=== PATIENT | male | born 1955 | race African-American/Black ===

== ENCOUNTER 2023-04-28 12:53 | Emergency (ER) | payer OTHER, MEDICAID ==
[~2023-04-28] VITALS: Ht 170.2 cm; Wt 41.3 kg
[~2023-04-28 12:53] MED LIST: INSULIN; METF-414 MT
[2023-04-28 13:05] VITALS: BP 138/87; PULSE 100; RESP 16; TEMP 98.5; O2SAT 100
== END 2023-04-28 15:42 | disposition left against medical advice (07) ==
LOC: ER 15:23
DX: Z53.21 Procedure and treatment not carried out due to patient leaving prior to being seen by health care provider (principal)
CPT/HCPCS: 82962; 99281

== ENCOUNTER 2023-05-19 09:14 | Emergency (ER) | payer OTHER, MEDICAID ==
[~2023-05-19] VITALS: Ht 171.4 cm; Wt 50.0 kg
[2023-05-19 09:23] VITALS: BP 97/68; RESP 15; TEMP 98.9; O2SAT 100
[2023-05-19 09:33] VITALS: PULSE 103
[2023-05-19 10:12] LABS: BASOPHILS % 0.5 % (0.0-2.0); EOSINOPHILS % 4.5 % (0.0-5.0); HEMATOCRIT. 36.8 % (42.0-52.0); HEMOGLOBIN. 11.7 g/dL (14.0-18.0); LYMPHOCYTES % 12.6 % (20.0-50.0); MEAN CORPUSCULAR HGB CONC 31.8 g/dL (31.0-37.0); MEAN CORPUSCULAR VOLUME 91.2 fL (80.0-94.0); MEAN PLATELET VOLUME 8.3 fl (7.4-10.4); MONOCYTES % 9.1 % (2.0-8.0); NEUTROPHILS % 73.3 % (40.0-76.0); PLATELET 264 x1000/uL (130-400); RED BLOOD CELL COUNT 4.04 mill/uL (4.7-6.1); RED CELL DISTRIBUTION WIDTH 14.2 % (11.6-14.6); WHITE BLOOD COUNT 5.1 x1000/uL (4.5-11.0)
[2023-05-19 11:03] LABS: ALANINE AMINOTRANSFERASE 36 IU/L (10-49); ALBUMIN 3.8 g/dL (3.2-4.8); ASPARTATE AMINOTRANSFERASE 29 IU/L (<34); BILIRUBIN TOTAL 1.3 mg/dL (0.1-1.0); CALCIUM 9.3 mg/dL (8.7-10.4); CARBON DIOXIDE 22 mEq/L (21-32); CHLORIDE 105 mEq/L (98-107); CREATININE 0.9 mg/dL (0.6-1.3); POTASSIUM 4.1 mEq/L (3.5-5.1); PROTEIN TOTAL 6.6 g/dL (6.0-8.3); SODIUM 138 mEq/L (136-145); UREA NITROGEN BLOOD 21 mg/dL (9-23)
[2023-05-19 12:11] LABS: GLUCOSE 238 mg/dL (70-105)
== END 2023-05-19 13:30 | disposition left against medical advice (07) ==
LOC: ER 09:14
DX: R51.9 Headache, unspecified (principal); Z53.21 Procedure and treatment not carried out due to patient leaving prior to being seen by health care provider
CPT/HCPCS: 36415; 80053; 85025; 99281

== ENCOUNTER 2024-05-14 11:27 | Inpatient (IN) | payer OTHER, MEDICAID ==
[~2024-05-14] VITALS: Ht 170.2 cm; Wt 87.6 kg
[2024-05-14 12:00] VITALS: RESP 23
[2024-05-14 12:10] LABS: HEMATOCRIT. 38.9 % (42.0-52.0); HEMOGLOBIN. 11.5 g/dL (14.0-18.0); MEAN CORPUSCULAR HEMOGLOBIN 27.7 pg (28.0-32.0); MEAN CORPUSCULAR HGB CONC 29.5 g/dL (31.0-37.0); MEAN CORPUSCULAR VOLUME 93.8 fL (80.0-94.0); MEAN PLATELET VOLUME 8.8 fl (7.4-10.4); PLATELET 169 x1000/uL (130-400); RED BLOOD CELL COUNT 4.15 mill/uL (4.7-6.1); RED CELL DISTRIBUTION WIDTH 16.1 % (11.6-14.6); WHITE BLOOD COUNT 5.7 x1000/uL (4.5-11.0)
[2024-05-14 12:21] LABS: CARBON DIOXIDE 28 mEq/L (21-32); CHLORIDE 109 mEq/L (98-107); POTASSIUM 4.2 mEq/L (3.5-5.1); SODIUM 142 mEq/L (136-145)
[2024-05-14 12:23] LABS: CALCIUM 8.9 mg/dL (8.7-10.4)
[2024-05-14 12:27] LABS: CREATININE 0.8 mg/dL (0.6-1.3); GLUCOSE 65 mg/dL (70-105); UREA NITROGEN BLOOD 22 mg/dL (9-23)
[2024-05-14 12:36] LABS: DIFFERENTIAL COMMENT 1
[2024-05-14] MEDS: DEXTROSE 50% WATER 50ML SYRINGE IV ONE (12:44)
[2024-05-14] MEDS ORDERED: FUROSEMIDE 100MG/10ML VIAL IVP ONE (12:45)
[2024-05-14 12:55] LABS: TROPONIN I HIGH SENSITIVITY 346 ng/L (3.0-53)
[2024-05-14 14:13] LABS: PLATELET ESTIMATE NORMAL
[2024-05-14] MEDS: FUROSEMIDE 40MG/4ML VIAL IVP NR (14:13)
[2024-05-14] MEDS: ASPIRIN 325MG TABLET PO ONE (14:13)
[2024-05-14] MEDS: ENOXAPARIN 80MG/0.8ML SYR SUBCUT ONE (14:14)
[2024-05-14] MEDS ORDERED: DOCUSATE SODIUM 100MG CAPSULE PO PRN (15:15)
[2024-05-14] MEDS ORDERED: ACETAMINOPHEN 325MG TABLET PO PRN ×2 (15:15)
[2024-05-14] MEDS ORDERED: GUAIFENESIN 200MG/10ML SUGAR FREE UDC PO PRN (15:15)
[2024-05-14] MEDS ORDERED: DEXTROSE 50% WATER 50ML SYRINGE IV PRN (15:15)
[2024-05-14] MEDS ORDERED: IPRATROPIUM/ALBUTEROL 0.5-3(2.5)MG/3ML NEB HHN PRN (15:15)
[2024-05-14] MEDS ORDERED: ONDANSETRON HCL 4MG/2ML INJ IV PRN (15:15)
[2024-05-14] MEDS ORDERED: LORAZEPAM 0.5MG TABLET PO PRN (15:15)
[2024-05-14 16:29] LABS: TROPONIN I HIGH SENSITIVITY 289 ng/L (3.0-53)
[2024-05-14] MEDS: BLOOD SUGAR DIAGNOSTIC STRIP TEST SCH (17:00)
[2024-05-14] MEDS ORDERED: NITROGLYCERIN 0.4MG TABLET SL SL PRN (17:30)
[2024-05-14] MEDS: INSULIN LISPRO 100 UNITS/ML SUBCUT SCH (22:28)
[2024-05-14] MEDS: FUROSEMIDE 40MG/4ML VIAL IVP SCH (22:29)
[2024-05-14] MEDS: ATORVASTATIN CALCIUM 40MG TABLET PO SCH (22:37)
[2024-05-14 23:40] VITALS: RESP 34
[2024-05-15] VITALS (8 sets, daily range): BP systolic 115–160; BP diastolic 68–110; PULSE 88–103; RESP 12–20; TEMP 36.61404–37.252; O2SAT 94–97
[2024-05-15 00:31] LABS: CLARITY URINE CLEAR (CLEAR); COLOR URINE YELLOW (YELLOW); GLUCOSE URINE 3+ (NEGATIVE); KETONES URINE NEGATIVE (NEGATIVE); LEUKOCYTE ESTERASE URINE NEGATIVE (NEGATIVE); NITRITE URINE NEGATIVE (NEGATIVE); OCCULT BLOOD URINE NEGATIVE (NEGATIVE); PH URINE 6.5 (4.5-8.0); PROTEIN URINE 1+ (NEGATIVE); UROBILINOGEN URINE 0.2 E.U./dL (0.2-1.0)
[2024-05-15 00:39] LABS: *AMPHETAMINES SCREEN URINE NEGATIVE (NEGATIVE); *BARBITURATES SCREEN URINE NEGATIVE (NEGATIVE); *BENZODIAZEPINES SCREEN URINE NEGATIVE (NEGATIVE); *COCAINE SCREEN URINE NEGATIVE (NEGATIVE); METHADONE URINE SCREEN NEGATIVE (NEGATIVE); OPIATES URINE SCREEN NEGATIVE (NEGATIVE); PHENCYCLIDINE URINE SCREEN NEGATIVE (NEGATIVE)
[2024-05-15 00:40] LABS: CANNABINOID URINE SCREEN NEGATIVE (NEGATIVE); ECSTASY MDMA SCREEN URINE NEGATIVE (NEGATIVE)
[2024-05-15 01:23] LABS: BACTERIA URINE NONE SEEN; RBC URINE NONE SEEN /hpf (0-2); SQUAMOUS EPITHELIAL CELL URINE NONE SEEN /lpf (RARE/1+); WBC URINE NONE SEEN /hpf (0-2)
[2024-05-15 01:39] LABS: TROPONIN I HIGH SENSITIVITY 302 ng/L (3.0-53)
[2024-05-15 07:01] LABS: HEMATOCRIT 37.1 % (42.0-52.0); HEMOGLOBIN 11.2 g/dL (14.0-18.0); MEAN CORPUSCULAR HEMOGLOBIN 27.9 pg (28.0-32.0); MEAN CORPUSCULAR HGB CONC 30.1 g/dL (31.0-37.0); MEAN CORPUSCULAR VOLUME 92.6 fL (80.0-94.0); PLATELET 161 x1000/uL (130-400); RED CELL DISTRIBUTION WIDTH 16.1 % (11.6-14.6)
[2024-05-15 07:08] LABS: CHLORIDE 109 mEq/L (98-107); POTASSIUM 4.5 mEq/L (3.5-5.1); SODIUM 143 mEq/L (136-145)
[2024-05-15 07:10] LABS: CALCIUM 8.8 mg/dL (8.7-10.4); CARBON DIOXIDE 28 mEq/L (21-32)
[2024-05-15 07:15] LABS: CREATININE 1.2 mg/dL (0.6-1.3); GLUCOSE 201 mg/dL (70-105); UREA NITROGEN BLOOD 23 mg/dL (9-23)
[2024-05-15 07:17] LABS: ALANINE AMINOTRANSFERASE 30 IU/L (10-49); ALBUMIN 3.4 g/dL (3.2-4.8); ASPARTATE AMINOTRANSFERASE 28 IU/L (<34); PHOSPHORUS 4.2 mg/dL (2.5-4.9)
[2024-05-15 07:18] LABS: BILIRUBIN TOTAL 1.1 mg/dL (0.1-1.0); PROTEIN TOTAL 6.7 g/dL (6.0-8.3)
[2024-05-15] MEDS ORDERED: CLONIDINE 0.1MG TABLET PO PRN (08:00)
[2024-05-15] MEDS: APIXABAN 2.5 MG TABLET PO SCH (09:01)
[2024-05-15] MEDS: SPIRONOLACTONE 25MG TABLET PO SCH (09:01)
[2024-05-15] MEDS: ASPIRIN 81MG TABLET PO SCH (09:01)
[2024-05-15] MEDS: LISINOPRIL 10MG TABLET PO SCH (09:02)
[2024-05-15] MEDS: INSULIN LISPRO 100 UNITS/ML SUBCUT SCH (09:10)
[2024-05-15] MEDS ORDERED: ENOXAPARIN 40MG/0.4ML SYR SUBCUT SCH (14:00)
[2024-05-15] MEDS: INSULIN GLARGINE 100 UNITS/ML SUBCUT SCH (21:20)
[2024-05-15] MEDS ORDERED: INSULIN GLARGINE 100 UNITS/ML SUBCUT SCH (22:00)
[2024-05-16] VITALS (9 sets, daily range): BP systolic 119–136; BP diastolic 81–101; PULSE 97–102; RESP 15–21; TEMP 36.61404–37.05852; O2SAT 93–99
== END 2024-05-16 20:15 | disposition left against medical advice (07) | DRG 280 ==
LOC: ER 11:27 → 5EST 13:08 → EDBD 13:08 → EDBEDREQ 13:15 → EDBEDREQTM 13:15
PROVIDERS: ADMIT Preventive Medicine Clinical Informatics; ATTEND Preventive Medicine Clinical Informatics
PROC: 5A09357 Assistance with Respiratory Ventilation, Less than 24 Consecutive Hours, Continuous Positive Airway Pressure (ICD-10-PCS; principal; 2024-05-14)
DX: I11.0 Hypertensive heart disease with heart failure (principal); I50.23 Acute on chronic systolic (congestive) heart failure; I21.A1 Myocardial infarction type 2; J96.01 Acute respiratory failure with hypoxia; Z20.822 Contact with and (suspected) exposure to COVID-19; E11.649 Type 2 diabetes mellitus with hypoglycemia without coma; I48.91 Unspecified atrial fibrillation; I42.0 Dilated cardiomyopathy; Z53.20 Procedure and treatment not carried out because of patient's decision for unspecified reasons; Z79.899 Other long term (current) drug therapy; Z79.4 Long term (current) use of insulin; Z99.3 Dependence on wheelchair; Z53.29 Procedure and treatment not carried out because of patient's decision for other reasons
CPT/HCPCS: 36415; 71045; 80048; 80053; 80061; 80305; 81003; 82962; 83036; 83735; 83880; 84100; 84145; 84484; 85025; 85027; 87426; 87804; 93005; 93306; 93970; 94660; 99291; J1650; J1815; J1940

== ENCOUNTER 2024-11-05 15:25 | Emergency (ER) | payer OTHER, MEDICAID ==
[~2024-11-05] VITALS: Ht 167.6 cm; Wt 59.0 kg
[2024-11-05 15:33] VITALS: BP 108/34; PULSE 84; RESP 16; TEMP 36.8; O2SAT 98
== END 2024-11-05 18:22 | disposition home or self-care (01) ==
LOC: ER 15:25
DX: S61.307A Unspecified open wound of left little finger with damage to nail, initial encounter (principal); E11.9 Type 2 diabetes mellitus without complications; I11.0 Hypertensive heart disease with heart failure; I50.9 Heart failure, unspecified; Z79.84 Long term (current) use of oral hypoglycemic drugs; W22.03XA Walked into furniture, initial encounter; Y93.89 Activity, other specified; Y92.89 Other specified places as the place of occurrence of the external cause; Y99.8 Other external cause status
CPT/HCPCS: 82962; 99282

== ENCOUNTER 2024-11-06 21:12 | Inpatient (IN) | payer OTHER, MEDICAID, MEDICARE ==
[~2024-11-06] VITALS: Ht 177.8 cm; Wt 74.8 kg
[2024-11-06 22:35] LABS: BG BASE EXCESS -1.3 mmol/L (-2.0-3.0); BG CARBOXYHEMOGLOBIN 0.9 % (0.5-1.5); BG DEOXYHEMOGLOBIN 1.4 % (0.0-5.0); BG FRACTION INSPIRED OXYGEN 21; BG METHEMOGLOBIN 0.3 % (0.5-1.5); BG OXYGEN SATURATION 98.6 % (94.0-98.0); BG OXYHEMOGLOBIN 97.4 % (94.0-98.0); BG PCO2 32.9 mmHg (35.0-48.0); BG PH 7.443 (7.350-7.450); BG PO2 106.9 mmHg (83.0-108.0); BG SAMPLE SITE LEFT RADIAL; BG TOTAL HEMOGLOBIN 13.9 g/dL (13.5-17.5); BG VENT MODE T PIECE
[2024-11-06] MEDS: SODIUM CHLORIDE 0.9% 1,000 ML IV ONE ×2 (22:54)
[2024-11-06 23:36] LABS: CHLORIDE 98 mEq/L (98-107); POTASSIUM 5.8 mEq/L (3.5-5.1); SODIUM 128 mEq/L (136-145)
[2024-11-06 23:37] LABS: CALCIUM 8.7 mg/dL (8.7-10.4); CARBON DIOXIDE 25 mEq/L (21-32)
[2024-11-06 23:42] LABS: CREATININE 1.4 mg/dL (0.6-1.3); UREA NITROGEN BLOOD 34 mg/dL (9-23)
[2024-11-06 23:43] LABS: PHOSPHORUS 3.2 mg/dL (2.5-4.9)
[2024-11-06 23:44] LABS: ALANINE AMINOTRANSFERASE 20 IU/L (10-49); ALBUMIN 3.1 g/dL (3.2-4.8); ASPARTATE AMINOTRANSFERASE 16 IU/L (<34); BILIRUBIN DIRECT 0.5 mg/dL (<=3.0); BILIRUBIN TOTAL 1.1 mg/dL (0.1-1.0); PROTEIN TOTAL 7.2 g/dL (6.0-8.3)
[2024-11-06 23:48] LABS: ETHANOL BLOOD < 10 mg/dL (<10)
[2024-11-07] VITALS (26 sets, daily range): BP systolic 84–118; BP diastolic 58–100; PULSE 70–93; RESP 9–21; TEMP 36.5–36.9; O2SAT 94–100
[2024-11-07 00:12] LABS: GLUCOSE 777 mg/dL (70-105); TROPONIN I HIGH SENSITIVITY 104 ng/L (3.0-53)
[2024-11-07 00:25] LABS: BETA HYDROXYBUTYRATE 1.8 mMol/L (0.0-0.3)
[2024-11-07] MEDS ORDERED: DEXTROSE 50% WATER 50ML SYRINGE IV PRN ×4 (01:30→16:15)
[2024-11-07] MEDS ORDERED: BLOOD SUGAR DIAGNOSTIC STRIP TEST PRN ×2 (01:30→02:45)
[2024-11-07 01:35] LABS: BASOPHILS % 0.5 % (0.0-2.0); EOSINOPHILS % 0.8 % (0.0-5.0); HEMATOCRIT. 43.8 % (42.0-52.0); HEMOGLOBIN. 13.3 g/dL (14.0-18.0); LYMPHOCYTES % 10.2 % (20.0-50.0); MEAN CORPUSCULAR HEMOGLOBIN 28.9 pg (28.0-32.0); MEAN CORPUSCULAR HGB CONC 30.3 g/dL (31.0-37.0); MEAN CORPUSCULAR VOLUME 95.6 fL (80.0-94.0); MEAN PLATELET VOLUME 11.1 fl (7.4-10.4); MONOCYTES % 12.6 % (2.0-8.0); NEUTROPHILS % 75.9 % (40.0-76.0); PLATELET 66 x1000/uL (130-400); RED BLOOD CELL COUNT 4.58 mill/uL (4.7-6.1); RED CELL DISTRIBUTION WIDTH 16.3 % (11.6-14.6)
[2024-11-07] MEDS: ASPIRIN 325MG EC TABLET PO NR (01:45)
[2024-11-07] MEDS: SODIUM CHLORIDE 0.9% 1,000 ML IV SCH ×3 (01:48→18:30)
[2024-11-07] MEDS: BLOOD SUGAR DIAGNOSTIC STRIP TEST SCH ×4 (01:51→12:55)
[2024-11-07] MEDS: INSULIN REGULAR 100U/100ML PMX 100 ML IV SCH ×2 (01:51→09:36)
[2024-11-07 01:54] LABS: DIFFERENTIAL COMMENT 1
[2024-11-07] MEDS ORDERED: SODIUM PHOSPHATE 15 MMOL in SODIUM CHLORIDE 0.9% 245 ML IV PRN (02:45)
[2024-11-07] MEDS ORDERED: GUAIFENESIN 200MG/10ML SUGAR FREE UDC PO PRN (02:45)
[2024-11-07] MEDS ORDERED: MAGNESIUM 2 G PREMIX 50 ML IV PRN (02:45)
[2024-11-07] MEDS ORDERED: ONDANSETRON HCL 4MG/2ML INJ IV PRN (02:45)
[2024-11-07] MEDS ORDERED: ACETAMINOPHEN 325MG TABLET PO PRN ×2 (02:45)
[2024-11-07] MEDS: DEXT 5%/0.9% NACL 1,000 ML IV SCH (02:45)
[2024-11-07] MEDS ORDERED: KCL 20MEQ/100ML PREMIX 100 ML IV PRN (02:45)
[2024-11-07] MEDS ORDERED: IPRATROPIUM/ALBUTEROL 0.5-3(2.5)MG/3ML NEB HHN PRN (02:45)
[2024-11-07] MEDS ORDERED: CLONIDINE 0.1MG TABLET PO PRN (02:45)
[2024-11-07] MEDS ORDERED: MAGNESIUM/ALUMINUM HYDROXIDE/SIMETHICONE 30ML UDC PO PRN (02:45)
[2024-11-07] MEDS ORDERED: DOCUSATE SODIUM 100MG CAPSULE PO PRN (02:45)
[2024-11-07] MEDS ORDERED: POTASSIUM CHLORIDE 40 MEQ in SODIUM CHLORIDE 0.9% 230 ML IV PRN (02:45)
[2024-11-07] MEDS ORDERED: APIX5TAB PO (03:23)
[2024-11-07] MEDS ORDERED: LISI-186 PO (03:23)
[2024-11-07] MEDS ORDERED: CARV12.545 PO (03:23)
[2024-11-07] MEDS ORDERED: EMPA25TA PO (03:23)
[2024-11-07] MEDS ORDERED: ASPI-1406 PO (03:23)
[2024-11-07] MEDS ORDERED: GABA-529 PO (03:23)
[2024-11-07] MEDS: HALOPERIDOL LACTATE 5MG/ML VIAL IM NR (03:39)
[2024-11-07 06:48] LABS: LACTIC ACID 4.5 mmol/L (0.4-2.0)
[2024-11-07 06:55] LABS: CALCIUM 8.3 mg/dL (8.7-10.4); CARBON DIOXIDE 23 mEq/L (21-32); CHLORIDE 103 mEq/L (98-107); POTASSIUM 4.6 mEq/L (3.5-5.1); SODIUM 135 mEq/L (136-145)
[2024-11-07 07:01] LABS: CREATININE 1.3 mg/dL (0.6-1.3); UREA NITROGEN BLOOD 33 mg/dL (9-23)
[2024-11-07 07:03] LABS: PHOSPHORUS 2.8 mg/dL (2.5-4.9)
[2024-11-07 07:05] LABS: GLUCOSE 555 mg/dL (70-105)
[2024-11-07 08:07] LABS: ALANINE AMINOTRANSFERASE 18 IU/L (10-49); ALBUMIN 2.7 g/dL (3.2-4.8); ASPARTATE AMINOTRANSFERASE 15 IU/L (<34); BILIRUBIN DIRECT 0.4 mg/dL (<=3.0); GAMMA GLUTAMYL TRANSPEPTIDASE 539 IU/L (<73)
[2024-11-07 08:08] LABS: BILIRUBIN TOTAL 0.8 mg/dL (0.1-1.0); PROTEIN TOTAL 6.4 g/dL (6.0-8.3)
[2024-11-07] MEDS: PANTOPRAZOLE SODIUM 40 MG/VIAL IV SCH (08:19)
[2024-11-07 12:17] LABS: CALCIUM 8.1 mg/dL (8.7-10.4); CARBON DIOXIDE 20 mEq/L (21-32); CHLORIDE 103 mEq/L (98-107); POTASSIUM 4.4 mEq/L (3.5-5.1); SODIUM 136 mEq/L (136-145)
[2024-11-07 12:23] LABS: CREATININE 1.1 mg/dL (0.6-1.3); GLUCOSE 248 mg/dL (70-105); UREA NITROGEN BLOOD 29 mg/dL (9-23)
[2024-11-07 12:24] LABS: CREATINE KINASE 93 IU/L (46-171)
[2024-11-07 12:25] LABS: PHOSPHORUS 2.6 mg/dL (2.5-4.9); TROPONIN I HIGH SENSITIVITY 90 ng/L (3.0-53)
[2024-11-07] MEDS: TAMSULOSIN HCL 0.4MG SR CAPSULE PO SCH (12:40)
[2024-11-07] MEDS: INSULIN GLARGINE 100 UNITS/ML SUBCUT SCH (12:40)
[2024-11-07] MEDS ORDERED: INSULIN LISPRO 100 UNITS/ML SUBCUT SCH ×2 (12:50→13:20)
[2024-11-07] MEDS: INSULIN LISPRO 100 UNITS/ML SUBCUT SCH (17:59)
[2024-11-07] MEDS ORDERED: SODIUM CHLORIDE 0.9% 100 ML IV ONE (18:00)
[2024-11-07 18:27] LABS: HEMATOCRIT. 38.9 % (42.0-52.0); MEAN CORPUSCULAR HEMOGLOBIN 28.7 pg (28.0-32.0); MEAN CORPUSCULAR HGB CONC 30.8 g/dL (31.0-37.0); MEAN PLATELET VOLUME 11.1 fl (7.4-10.4); PLATELET 66 x1000/uL (130-400); RED BLOOD CELL COUNT 4.19 mill/uL (4.7-6.1); RED CELL DISTRIBUTION WIDTH 16.4 % (11.6-14.6)
[2024-11-07 18:30] LABS: CHLORIDE 103 mEq/L (98-107); POTASSIUM 4.4 mEq/L (3.5-5.1); SODIUM 135 mEq/L (136-145)
[2024-11-07 18:31] LABS: CALCIUM 7.9 mg/dL (8.7-10.4); CARBON DIOXIDE 22 mEq/L (21-32)
[2024-11-07 18:36] LABS: GLUCOSE 97 mg/dL (70-105); UREA NITROGEN BLOOD 32 mg/dL (9-23)
[2024-11-07 18:37] LABS: DIFFERENTIAL COMMENT 1
[2024-11-07 18:38] LABS: CREATINE KINASE 85 IU/L (46-171); PHOSPHORUS 2.3 mg/dL (2.5-4.9)
[2024-11-07 18:45] LABS: TROPONIN I HIGH SENSITIVITY 88 ng/L (3.0-53)
[2024-11-07 18:54] LABS: NUCLEATED RED BLOOD CELLS 2 /100 WBC; PLATELET ESTIMATE DECREASED
[2024-11-07] MEDS ORDERED: APIXABAN 5 MG TABLET PO SCH (21:00)
[2024-11-08] VITALS: BP_SYST 102; BP_SYST 162; BP_DIAS 79; BP_DIAS 80; PULSE 110; PULSE 85; RESP 18; RESP 19; TEMP 36.6; O2SAT 100; O2SAT 96
[2024-11-08] MEDS ORDERED: INSULIN GLARGINE 100 UNITS/ML SUBCUT SCH ×2 (07:00→22:00)
[2024-11-08] MEDS: INSULIN LISPRO 100 UNITS/ML SUBCUT SCH (12:40)
[2024-11-08 17:28] VITALS: BP 125/72; PULSE 75; TEMP 97; O2SAT 98
== END 2024-11-08 18:34 | disposition short-term general hospital (02) | DRG 637 ==
LOC: ER 21:12 → CVICU 11-07 01:50 → EDBEDREQ 11-07 01:51 → ENRESERV 11-07 02:01 → 8WST 11-07 22:45
PROVIDERS: ADMIT Internal Medicine; ATTEND Internal Medicine
DX: E11.00 Type 2 diabetes mellitus with hyperosmolarity without nonketotic hyperglycemic-hyperosmolar coma (NKHHC) (principal); G93.41 Metabolic encephalopathy; I21.A1 Myocardial infarction type 2; K83.1 Obstruction of bile duct; N17.9 Acute kidney failure, unspecified; L97.929 Non-pressure chronic ulcer of unspecified part of left lower leg with unspecified severity; L97.919 Non-pressure chronic ulcer of unspecified part of right lower leg with unspecified severity; E11.42 Type 2 diabetes mellitus with diabetic polyneuropathy; D69.6 Thrombocytopenia, unspecified; E86.0 Dehydration; I50.9 Heart failure, unspecified; I11.0 Hypertensive heart disease with heart failure; E87.5 Hyperkalemia; I48.91 Unspecified atrial fibrillation; R41.0 Disorientation, unspecified; K74.3 Primary biliary cirrhosis; I87.2 Venous insufficiency (chronic) (peripheral); L97.529 Non-pressure chronic ulcer of other part of left foot with unspecified severity; T50.995A Adverse effect of other drugs, medicaments and biological substances, initial encounter; I87.8 Other specified disorders of veins; L81.9 Disorder of pigmentation, unspecified; E11.621 Type 2 diabetes mellitus with foot ulcer; D72.819 Decreased white blood cell count, unspecified; Z91.148 Patient's other noncompliance with medication regimen for other reason; Z79.01 Long term (current) use of anticoagulants; Z79.4 Long term (current) use of insulin; Z79.82 Long term (current) use of aspirin; Z79.84 Long term (current) use of oral hypoglycemic drugs; Z79.899 Other long term (current) drug therapy; Z99.3 Dependence on wheelchair; Y92.89 Other specified places as the place of occurrence of the external cause
CPT/HCPCS: 36415; 36600; 71045; 80048; 80076; 80320; 82010; 82375; 82550; 82805; 82962; 82977; 83036; 83605; 83735; 83880; 83930; 84100; 84145; 84484; 85025; 93005; 93970; 99291; J1630; J1815; J2470; J7030; J7042; G0480